=== PATIENT | male | born 1945 | race Caucasian/White ===

== ENCOUNTER → 2017-04-26 12:02 | Outpatient (CLI) | payer MEDICARE | END | disposition home or self-care (01) | LOC: D.RAD 04-25 08:00 | DX: J44.9 Chronic obstructive pulmonary disease, unspecified (principal) ==

== ENCOUNTER → 2017-05-03 08:26 | Outpatient (CLI) | payer MEDICARE | END | disposition home or self-care (01) | LOC: D.CT 08:26 | DX: R93.8 Abnormal findings on diagnostic imaging of other specified body structures (principal) ==

== ENCOUNTER 2017-08-16 17:37 | Emergency (ER) | payer MEDICARE | END 2017-08-16 21:17 | disposition home or self-care (01) | LOC: D.ER 17:37 | DX: S09.90XA Unspecified injury of head, initial encounter (principal); W19.XXXA Unspecified fall, initial encounter; Y93.89 Activity, other specified; Y92.129 Unspecified place in nursing home as the place of occurrence of the external cause; J44.9 Chronic obstructive pulmonary disease, unspecified; F03.90 Unspecified dementia, unspecified severity, without behavioral disturbance, psychotic disturbance, mood disturbance, and anxiety; Z79.01 Long term (current) use of anticoagulants ==

== ENCOUNTER 2017-08-18 17:36 | Inpatient (IN) | payer MEDICARE ==
[~2017-08-18] VITALS: Ht 177.8 cm; Wt 63.5 kg
[2017-08-18 20:20] LABS: BASOPHILS 0.1 % (0-2); EOSINOPHILS 0.9 % (0-7); HEMATOCRIT 29.7 % (42.0-54.0); HEMOGLOBIN 9.6 g/dL (13.5-17.5); IMMATURE GRANULOCYTES 0.5 % (0-5); LYMPHOCYTES 5.1 % (15-50); MCH 27.1 pg (26.0-34.0); MCHC 32.3 g/dL (31.0-37.0); MCV 83.9 fL (80.0-100.0); MEAN PLATELET VOLUME 10.3 fL (7.4-10.4); MONOCYTES 5.7 % (2-11); NEUTROPHILS 87.7 % (40-80); PLATELET COUNT 160 10x3/uL (130-400); RBC 3.54 10x6/uL (4.20-6.10); RDW 15.5 % (11.5-14.5); WBC 10.7 10x3/uL (4.8-10.8)
[2017-08-18 20:28] LABS: APTT 36.4 SECONDS (22.8-39.4); INR 1.24 (0.85-1.17); PROTIME 15.5 SECONDS (11.6-15.0)
[2017-08-18 20:34] LABS: ALBUMIN 2.5 g/dL (3.4-5.0); ANION GAP 12.4 mmol/L (8-16); BILIRUBIN - TOTAL 0.51 mg/dL (0.2-1.3); CALCIUM 9.3 mg/dL (8.5-10.1); CARBON DIOXIDE 29.3 mmol/L (21.0-32.0); CREATININE - SERUM 1.2 mg/dL (0.6-1.3); POTASSIUM - SERUM 3.7 mmol/L (3.5-5.1); PROTEIN - SERUM 7.2 g/dL (6.4-8.2)
[2017-08-19] VITALS (7 sets, daily range): BP systolic 99–132; BP diastolic 65–84; Ht 177.8 cm; Wt 63.5 kg
[2017-08-19] MEDS ORDERED: ACETAMINOPHEN325 MG PO (02:51)
[2017-08-19] MEDS ORDERED: ELIQUIS5 MG PO (02:52)
[2017-08-19] MEDS ORDERED: FUROSEMIDE20 MG PO (02:52)
[2017-08-19] MEDS ORDERED: DEPAKOTE500 MG PO (02:52)
[2017-08-19] MEDS ORDERED: MELATONIN 3 MG1 TAB PO (02:53)
[2017-08-19] MEDS ORDERED: HYDROCODON-ACE1 EAC7 PO (02:53)
[2017-08-19] MEDS ORDERED: VITAMIN B-1100 M1 PO (02:53)
[2017-08-19] MEDS ORDERED: PROTONIX40 MG PO (02:53)
[2017-08-19] MEDS ORDERED: VITAMIN D5000 UNIT PO (02:54)
[2017-08-19] MEDS ORDERED: GEODON20 MG PO (02:54)
[2017-08-19] MEDS ORDERED: IPRAT-ALBUT 0.5-3 ML UPD (02:55)
[2017-08-19] MEDS ORDERED: FOLIC ACID1 MG PO (02:55)
[2017-08-19] MEDS ORDERED: VITAMIN B-121000 MCG PO (02:56)
--- NOTE | 2017-08-19 05:26 | NUR ---
WASHERY BOSS ASSESSMENT COMPLETED. PT ORIENTED TO PERSON ONLY. IV TO R HAND WITH HEPARIN AT 1300U/HR. IV PATENT. UPPER L ARM INCISION CLEAN, DRY AND INTACT. L ARM SWOLLEN. WEAK RADIAL PULSE. BED ALARM ON. WILL CONTINUE TO MONITOR. SR UP X2, CALL LIGHT WITHIN REACH.
--- NOTE | 2017-08-19 07:19 | NUR ---
RECEIVED REPORT. ASSUMED CARE OF PATIENT. CALL LIGHT WITHIN REACH. LEFT ARM SWOLLEN. HEPARIN INFUSING AT 13. AWAITING NEXT PTT DRAW AT 0830. NO DISTRESS.
--- NOTE | 2017-08-19 08:29 | NUR ---
MEDICATED FOR PAIN AT THIS TIME. NO DISTRESS.
--- NOTE | 2017-08-19 08:47 | NUR ---
CALLED LAB TO REMIND THEM THAT PTT WAS DUE TO BE DRAWN AT 0830 AND HAS NOT BEEN DRAWN YET. SPOKE WITH SOPHIE. SHE STATED CLIENT COORDINATOR IS ON HER WAY TO DRAW THE PTT AT THIS TIME.
--- NOTE | 2017-08-19 09:40 | NUR ---
PTT RESULTED 83.9. PER HEPARIN PROTOCOL, NO ADJUSTMENT TO HEPARIN DRIP INDICATED AT THIS TIME. NEXT PTT DRAW SCHEDULED WITH AM LABS.
--- NOTE | 2017-08-19 09:57 | NUR ---
UNSUCCESSFUL ATEMPT TO PLACE 22 GAUGE TO RIGHT FOREARM. PATIENT NEEDS 2ND IV FOR FLUIDS HEPARIN DRIP IS INFUSING TO 20 GUAGE IN RIGHT HAND. WILL HAVE ANOTHER NURSE TRY IV PLACEMENT.
--- NOTE | 2017-08-19 18:25 | NUR ---
ASSISTED PATIENT BACK TO BED FROM RESTROOM. CALL LIGHT PLACED WITHIN REACH. LEFT ARM ON PILLOW. NO DISTRESS.
--- NOTE | 2017-08-19 19:35 | NUR ---
PT IN BED RESTING QUIETLY. BREATHING EVEN AND UNLABORED. DENIES ANY PAIN OR NEEDS AT THIS TIME. BED IN LOW POSITION, CALL LIGHT WITHIN REACH. WILL CTM.
[2017-08-20 04:00] VITALS: BP 106/63
--- NOTE | 2017-08-20 07:10 | NUR ---
RECEIVED REPORT. ASSUMED CARE OF PATIENT. CALL LIGHT WITHIN REACH. PATIENT RESTING WITH EYES CLOSED, RESP EVEN AND UNLABORED. EASILY AROUSED. HEPARIN DRIP INFUSING AT 13, CONTINUE TO AWAIT PTT VALUE. CALLED AND SPOKE TO SOPHIE IN LAB AND SHE STATED LAB HAS TO BE REDRAWN. SENDING PORT TRAFFIC MANAGER AT THIS TIME FOR REDRAW. NO DISTRESS.
[2017-08-20 08:00] VITALS: BP 124/75
--- NOTE | 2017-08-20 08:23 | NUR ---
PTT RESULTED AT THIS TIME. PER PROTOCOL, HEPARIN DRIP STOPED, WILL RESTART AT 0850 AT A DECREASED RATE OF 1100 UNITS PER HOUR.
--- NOTE | 2017-08-20 08:55 | NUR ---
HEPARIN DRIP RESUMED AT THIS TIME AT 1100 UNITS = 11 ML PER HOUR PER PROTOCOL. CALL LIGHT WITHIN REACH. NO DISTRESS.
[2017-08-20 12:00] VITALS: BP 116/65
--- NOTE | 2017-08-20 14:17 | NUR ---
PER LIVAN FROM LAB, HEPARIN DRIP STOPPED AT 1415. DRIP TO BE STOPPED 30 MINUTES PRIOR TO LAB DRAW DUE TO INACCURATE RESULTS. LAB UNABLE TO DRAW DISTAL FROM IV SITE.
[2017-08-20 15:05] LABS: BASOPHILS 0 % (0-2); EOSINOPHILS 1.3 % (0-7); HEMATOCRIT 31.8 % (42.0-54.0); HEMOGLOBIN 10.6 g/dL (13.5-17.5); IMMATURE GRANULOCYTES 0.1 % (0-5); LYMPHOCYTES 12.1 % (15-50); MCH 27.7 pg (26.0-34.0); MCHC 33.3 g/dL (31.0-37.0); MONOCYTES 7.3 % (2-11); NEUTROPHILS 79.2 % (40-80); PLATELET COUNT 121 10x3/uL (130-400); RBC 3.83 10x6/uL (4.20-6.10); RDW 15.5 % (11.5-14.5); WBC 6.7 10x3/uL (4.8-10.8)
[2017-08-20 15:16] LABS: ANION GAP 12.4 mmol/L (8-16); CALCIUM 8.7 mg/dL (8.5-10.1); CARBON DIOXIDE 29.3 mmol/L (21.0-32.0); CREATININE - SERUM 1.3 mg/dL (0.6-1.3); POTASSIUM - SERUM 3.7 mmol/L (3.5-5.1)
--- NOTE | 2017-08-20 15:56 | NUR ---
HEPARIN DRIP STOPPED DUE TO PTT ELEVATED AT 98.5. WILL HOLD FOR 30 MINUTES AND RESTART.
[2017-08-20 16:00] VITALS: BP 111/63
--- NOTE | 2017-08-20 16:31 | NUR ---
HEPARIN DRIP NOW INFUSING AT 10 ML/HR = 1000 UNITS PER HOUR.
--- NOTE | 2017-08-20 17:31 | NUR ---
MEDICATED FOR SHOULDER PAIN AT THIS TIME. NO DISTRESS.
[2017-08-20 20:49] VITALS: BP 93/61
[2017-08-21 01:18] VITALS: BP 85/49
[2017-08-21 05:07] LABS: BASOPHILS 0.2 % (0-2); EOSINOPHILS 1.1 % (0-7); HEMATOCRIT 28.7 % (42.0-54.0); HEMOGLOBIN 9.4 g/dL (13.5-17.5); IMMATURE GRANULOCYTES 0.3 % (0-5); LYMPHOCYTES 13.6 % (15-50); MCH 27.2 pg (26.0-34.0); MCHC 32.8 g/dL (31.0-37.0); MCV 82.9 fL (80.0-100.0); MEAN PLATELET VOLUME 10.1 fL (7.4-10.4); MONOCYTES 10.8 % (2-11); PLATELET COUNT 121 10x3/uL (130-400); RBC 3.46 10x6/uL (4.20-6.10); RDW 15.4 % (11.5-14.5); WBC 6.3 10x3/uL (4.8-10.8)
[2017-08-21 05:15] LABS: ANION GAP 12.3 mmol/L (8-16); CALCIUM 8.6 mg/dL (8.5-10.1); CARBON DIOXIDE 29.5 mmol/L (21.0-32.0); CREATININE - SERUM 1.6 mg/dL (0.6-1.3); POTASSIUM - SERUM 3.8 mmol/L (3.5-5.1)
--- NOTE | 2017-08-21 07:35 | NUR ---
ASSESSMENT DONE. DENIES NEEDS.
[2017-08-21 08:00] VITALS: BP 88/56
--- NOTE | 2017-08-21 10:04 | NUR ---
IV PATENT. CALL LIGHT IN REACH. NO NEEDS VOICED. WILL CONT. PLAN OF CARE.
[2017-08-21 12:00] VITALS: BP 98/56
[2017-08-21 16:00] VITALS: BP 104/60
--- NOTE | 2017-08-21 16:38 | NUR ---
WITHOUT CHANGES OR DISTRESS NOTED AT THIS TIME. DENIES NEEDS.
[2017-08-21 21:02] VITALS: BP 110/69
[2017-08-22 00:30] VITALS: BP 113/64
[2017-08-22 05:28] LABS: BASOPHILS 0.2 % (0-2); EOSINOPHILS 1.6 % (0-7); HEMATOCRIT 29.3 % (42.0-54.0); HEMOGLOBIN 9.8 g/dL (13.5-17.5); IMMATURE GRANULOCYTES 0.3 % (0-5); MCH 27.7 pg (26.0-34.0); MCHC 33.4 g/dL (31.0-37.0); MCV 82.8 fL (80.0-100.0); MEAN PLATELET VOLUME 11.2 fL (7.4-10.4); MONOCYTES 8.2 % (2-11); NEUTROPHILS 76.7 % (40-80); PLATELET COUNT 130 10x3/uL (130-400); RBC 3.54 10x6/uL (4.20-6.10); RDW 15.8 % (11.5-14.5); WBC 6.3 10x3/uL (4.8-10.8)
[2017-08-22 05:41] LABS: ANION GAP 9.7 mmol/L (8-16); CALCIUM 8.8 mg/dL (8.5-10.1); CARBON DIOXIDE 29.7 mmol/L (21.0-32.0); CREATININE - SERUM 1.4 mg/dL (0.6-1.3); POTASSIUM - SERUM 3.4 mmol/L (3.5-5.1)
[2017-08-22 06:03] VITALS: BP 101/62
--- NOTE | 2017-08-22 07:15 | NUR ---
RECEIVED REPORT. ASSUMED CARE OF PATIENT. CALL LIGHT WITHIN REACH. RESTING WITH EYES OPEN. PATIENT CONFUSED. LEFT ARM ELEVATED ON PILLOW AT THIS TIME. DENIES PAIN. NO DISTRESS.
[2017-08-22 08:07] VITALS: BP 121/73
--- NOTE | 2017-08-22 09:15 | NUR ---
ASSISTED PATIENT BACK TO BED. CALL LIGHT WITHIN REACH. NO DISTRESS.
--- NOTE | 2017-08-22 12:19 | NUR ---
LEFT SHOULDER SITE CARE PROVIDED AT THIS TIME. DRESSINGS TO LEFT SHOULDER CLEAN, DRY AND INTACT. ARM WRAPPED WITH PRIYA BANDAGE PER ORDERS AT THIS TIME. NO DISTRESS. TOLERATED DRESSING CHANGE WELL. ZIP LINE DRESSINGS PATENT TO BOTH SHOULDER INCISIONS.
--- NOTE | 2017-08-22 12:21 | NUR ---
Patient Name: ALEX CARMEN Admission Status: ER Accout number: [id number] Admission Date: 08-19-2017 : 1945 Admission Diagnosis: Attending: LONG ISIDRO Current LOS: 3 Anticipated DC Date: 08-22-2017 Planned Disposition: Shelter Facility Primary Insurance: MEDICARE A & B PLANNED EXTERNAL PROVIDER: [facility], MEDICARE REHAB BED Discharge Planning Comments: * Is the patient Alert and Oriented? No 0 * How many steps to enter\\exit or inside your home? NONE 0 * PCP DR. CESPEDES 0 * [facility] * Preadmission Environment Shelter Facility 0 * Facility Name [facility] 0 * Partial ADLs (Assistance needed) Ambulation Bathing Medication Management Transfers 0 * Equipment Other 0 * Other Equipment ALL MEDICAL EQUIPMENT PROVIDED BY FACILITY 0 * List name and contact numbers for known caregivers / representatives who currently or will assist patient after discharge: MARIA VICTORIA /NAVI CARMEN, BROTHER-POA /DTR IN LAW, / [phone] 0 * Community resources currently utilized None 0 * Please name any agencies selected above. NONE 0 * Additional services required to return to the preadmission environment? No 0 * Can the patient safely return to the preadmission environment? Yes 0 * Has this patient been hospitalized within the prior 30 days at any hospital? No 0 CM RECEIVED DISCHARGE ORDER INDICATING DISCHARGE BACK TO SNF; CM MET WITH PT IN ROOM TO DISCUSS DISCHARGE PLANNING AND NEEDS. PT ORIENTED TO SELF ONLY, HE DOES NOT KNOW WHERE HE LIVES AND CAN NOT TELL CM WHO TO CALL IN REGARDS TO HIS CARE. PT DENIES DISCHARGE NEEDS. CM PROVIDED AND DISCUSSED IMPORTANT MESSAGE FROM MEDICARE. CM REVIEWED CHART WHICH INDICATES PT IN GROUP HOME AT [facility]. CM CALLED LISTED EMERGENCY CONTACT OF MARIA VICTORIA OR NAVI CARMEN, , LEFT MESSAGE. CM CALLED SECOND LISTED NUMBER FOR MARIA VICTORIA CARMEN, , INFORMED MARIA VICTORIA OF DISCHARGE WHO WAS IN AGREEMENT FOR DISCHARGE BACK TO [facility] REPORTING THIS IS PT'S "THIRD HOME". CM CALLED [facility], , SPOKE TO LACIE WHO REPORTS THEY CAN ACCEPT PT BACK TODAY IN SKILLED BED AND WILL ARRANGE VAN TRANSPORTATION. CM FAXED DISCHARGE INFORMATION TO [facility] AT [phone]. DALE RECEIVED CALL FROM NAVI CARMEN WHO REPORTS SHE AND MARIA VICTORIA ARE PT'S GUARDIAN / POWER OF PUBLIC SERVICES LIBRARIAN AND IT SHOULD BE IN THE CHART. NAVI REPORTS PT IS NOT ABLE TO MAKE DECISONS FOR HIMSELF AND CANNOT REFUSE SURGERY; LUIS ALBERTO UNDERSTANDING IS THAT PT WAS TO HAVE SURGERY AFTER THE BLOOD CLOT WAS DISOLVED. NAVI ASKED FOR AND RECEIVED DR. ABDALLA OFFICE PHONE NUMBER. NAVI DOES NOT WANT PT DISCHARGED AND WANTS PT TO HAVE SURGERY. DALE REVIEWED CHART AND FOUND NO POWER OR PUBLIC SERVICES LIBRARIAN OR GUARDIANSHIP ON THE CHART. NAVI FURTHER STATES THEY WENT TO COURT YESTERDAY AND WERE GRANTED PERMANATE GUARDIANSHIP. CM EXPLAINED THAT ANY POA OR GUARDIANSHIP WILL NEED TO BE PROVIDED TO BE PLACED ON THE CHART. NAVI REPORTS SHE WILL CALL [employer] AND HAVE THEM FAX ONE IMMEDIATELY. CM NOTIFIED ARTI FINK AND CITY COUNCILMAN OF [employer]OVE. CM CALLED AND SPOKE TO RECEPTIONISTS WHO WILL NOTIFY LACIE TO CANCEL VAN PHLEBOTOMY LAB ASSISTANT FOR TODAY. Substation Wireman: Harvey Solorio
[2017-08-22 13:38] VITALS: BP 110/60
--- NOTE | 2017-08-22 14:00 | NUR ---
PATIENT ATTEMPTING TO GET OOB, LEONARDO MAT ALARMING. ASSISTED PATIENT TO RESTROOM FOR TOILETING AND BACK TO BED. CALL LIGHT PLACED WITHIN REACH. NO DISTRESS.
[2017-08-22 16:52] VITALS: BP 116/72
--- NOTE | 2017-08-22 17:48 | NUR ---
PATIENT HAS CONTINUOUSLY GOTTEN OOB THIS SHIFT, SETTING OFF BED ALARM. REORIENTED, ASSISTED BACK IN BED. PATIENT HAS UNSTEADY GAIT AND FALL RISK HAVE BEEN IDENTIFIED. VERO ONTIVEROS. LEONARDO MCKEON PATENT.
--- NOTE | 2017-08-22 18:11 | NUR ---
PATIENT CONTINUES TO GET OOB. ASSISTED TO RESTROOM AGAIN AND BACK TO BED. LEONARDO MAT PATENT. CALL LIGHT WITHIN REACH. NO DISTRESS.
--- NOTE | 2017-08-22 19:40 | NUR ---
PT IN BED. FINANCIAL ECONOMIST IN ROOM. ASSISTING PT WITH TOILETING. DENIES NEEDS AT THIS TIME.
[2017-08-22 21:53] VITALS: BP 137/86
[2017-08-23 02:37] VITALS: BP 128/76
[2017-08-23 05:05] LABS: BASOPHILS 0 % (0-2); EOSINOPHILS 1.2 % (0-7); HEMATOCRIT 30.4 % (42.0-54.0); HEMOGLOBIN 9.9 g/dL (13.5-17.5); IMMATURE GRANULOCYTES 0.3 % (0-5); LYMPHOCYTES 11.4 % (15-50); MCHC 32.6 g/dL (31.0-37.0); MCV 83.1 fL (80.0-100.0); MONOCYTES 9.6 % (2-11); NEUTROPHILS 77.5 % (40-80); PLATELET COUNT 143 10x3/uL (130-400); RBC 3.66 10x6/uL (4.20-6.10); RDW 15.6 % (11.5-14.5); WBC 7.3 10x3/uL (4.8-10.8)
[2017-08-23 05:16] VITALS: BP 127/70
[2017-08-23 05:20] LABS: ANION GAP 10.9 mmol/L (8-16); CALCIUM 9.1 mg/dL (8.5-10.1); CARBON DIOXIDE 30.1 mmol/L (21.0-32.0); CREATININE - SERUM 1.2 mg/dL (0.6-1.3)
--- NOTE | 2017-08-23 05:31 | NUR ---
PT IS AWAKE, CONFUSED, HAS BEEN OOB SEVERAL TIMES, EVEN WITH LEONARDO MAT ALARM AND BOX ALARM. PT IS UNABLE TO UNDERSTAND THAT HE MUST STAY IN BED R/T HIS SAFETY AND HIGH FALL RISK. PT IS UNABLE TO BE REORIENTED, AND IS UNABLE TO UNDERSTAND HOW AND WHEN TO USE HIS CALL LIGHT. PIO SCHULTZ HAS HAD TO DO ONE ON ONE CARE WITH PT FOR MAJORITY OF SHIFT R/T HIS INABILITY TO UNDERSTAND EVEN SIMPLE INSTRUCTIONS. PT REQUIRES CLOSE AND FREQUENT MONITORING. CONTINUE TO MONITOR.
--- NOTE | 2017-08-23 07:15 | NUR ---
REPORT RECEIVED. PT RESTING QUIETLY, PT IS ALERT AND ORIENTED X1. RR EVEN AND UNLABORED. ASISSTED PT TO AMBULATE TO BATHROOM X1 ASSIST. LEONARDO ALARM ON AND WORKING. WILL CTM.
[2017-08-23 09:29] VITALS: BP 113/70
--- NOTE | 2017-08-23 10:40 | NUR ---
Nutrition Follow Up: Pt is very confused at this time. Per chart pt is eating 47% meal avg on a regular diet. He is receiving Ensure TID. +BM 08/22/17. Labs reviewed. Meds noted including Lasix, Thiamine. Rec continue current diet, supplement regimen. RD following.
[2017-08-23 11:40] VITALS: BP 123/79
--- NOTE | 2017-08-23 15:15 | NUR ---
DISCUSSED D/C WITH FAMILY AT BEDSIDE. VERBALIZED UNDERSTANDING. PT RESTING QUIETLY, WILL CTM.
[2017-08-23 15:31] VITALS: BP 126/75
--- NOTE | 2017-08-23 16:58 | NUR ---
Patient Name: ALEX CARMEN Encounter No: [id number] : 1945 Primary Insurance: MEDICARE A & B Anticipated DC Date: 08-22-2017 Planned Disposition: Longterm Facility External Planned Provider: [facility] MEDICARE REHAB BED DCP follow-up note: CM RECEIVED DISCHARGE ORDER INDICATING DISCHARGE BACK TO LONG TERM; CM CALLED LISTED EMERGENCY CONTACT OF MARIA VICTORIA OR NAVITEODORA CARMEN, , SPOKE TO MARIA VICTORIA AND INFORMED OF DISCHARGE; MARIA VICTORIA IN AGREEMENT FOR DISCHARGE BACK TO [facility] TODAY. CM CALLED [facility], , SPOKE TO LACIE WHO REPORTS HE WILL CALL CM REGARDING VAN TRANSPORTATION. CM FAXED DISCHARGE INFORMATION TO [facility] AT [phone]. CM RECEIVED CALL FROM LACIE KINNEY [facility], NO VAN AVAILABLE FOR ALLIANCE DIRECTOR UNTI THE MORNING, PT DOES NOT QUALIFY FOR [facility] TRANSPORT. HEAVY EQUIPMENT OPERATOR NOTIFIED. BEDSIDE NURSE NOTIFIED. CM CALLED MARIA VICTORIA CARMEN, NOTIFIED OF DELAY IN GETTING PT BACK TO THE LONG TERM, MARIA VICTORIA REPORTS UNDERSTANDING AND AGREEMENT. NURSE REPORT TO BE CALLED TO [facility], . VAN TO ALLIANCE DIRECTOR PT IN THE MORNING, 08-24-17. Farmworker Field Crop: Harvey Solorio
--- NOTE | 2017-08-23 18:28 | NUR ---
PT RESTING QUIETILY, ASSISTED PT TO USE THE URINAL. PT DENIES OTHER NEEDS, RR EVEN AND UNLABORED. WILL GIVE REPORT ON PT CONDTION FOR THE DAY.
[2017-08-23 21:32] VITALS: BP 136/65
--- NOTE | 2017-08-23 22:51 | NUR ---
PATIENT RESTLESS. USING URINAL, RESPONS TO VERBAL DIRECTIONS AND IS ABLE TO TAKE HIS MEDICATIONS. DENIES ANY PAIN OR ANY NEEDS AT THIS TIME.DRESSING ON LEFT SHOULDER IS CLEAN DRY AND INTACT.
--- NOTE | 2017-08-24 00:01 | NUR ---
HIGH SCHOOL LIBRARIAN AT BEDSIDE, CALL LIGHT IN REACH. WILL CONTINUE WITH PLAN OF CARE. 82 SR ON TELEMETRY
[2017-08-24 02:45] VITALS: BP 121/62
[2017-08-24 04:42] VITALS: BP 130/56
--- NOTE | 2017-08-24 04:52 | NUR ---
PATIENT IS SLEEPING SOUNDLY.
[2017-08-24 06:29] LABS: BASOPHILS 0.1 % (0-2); EOSINOPHILS 0.7 % (0-7); HEMATOCRIT 30.8 % (42.0-54.0); HEMOGLOBIN 10.1 g/dL (13.5-17.5); IMMATURE GRANULOCYTES 0.3 % (0-5); LYMPHOCYTES 10.7 % (15-50); MCHC 32.8 g/dL (31.0-37.0); MCV 82.4 fL (80.0-100.0); MEAN PLATELET VOLUME 10.9 fL (7.4-10.4); MONOCYTES 9.4 % (2-11); NEUTROPHILS 78.8 % (40-80); PLATELET COUNT 139 10x3/uL (130-400); RBC 3.74 10x6/uL (4.20-6.10); WBC 6.9 10x3/uL (4.8-10.8)
[2017-08-24 07:01] LABS: ANION GAP 13.9 mmol/L (8-16); CALCIUM 8.9 mg/dL (8.5-10.1); CARBON DIOXIDE 28.5 mmol/L (21.0-32.0); CREATININE - SERUM 1.2 mg/dL (0.6-1.3); POTASSIUM - SERUM 4.4 mmol/L (3.5-5.1)
--- NOTE | 2017-08-24 07:15 | NUR ---
RECIEVED REPORT ON PATIENT, PATIENT IS SLEEPING AT THIS TIME. PATIENT IS ON ROOM AIR, NAD NOTED. CHEST RISES AND FALLS EQUALLY. PATIENT IS SR ON MONITOR WITH A RATE OF 83 AT THIS TIME. BED IS LOW AND LOCKED AT THIS TIME. CALL LIGHT IN REACH. CPOC
--- NOTE | 2017-08-24 09:21 | NUR ---
REPORT GIVEN TO ZAID AT [employer].
[2017-08-24 09:45] VITALS: BP 131/77
--- NOTE | 2017-08-24 10:30 | NUR ---
SAL RINCON HERE FOR PICKUP, IV DC WITH CATH TIP INTACT. PATIENT CONFUSED AND UNABLE TO SIGN DC INSTRUCTIONS. PAPERWORK GIVEN TO CAROLYN RINCON. CPOC
== END 2017-08-24 13:53 | DRG 560 ==
LOC: D.ER 17:36 → D.M2 08-19 01:30
PROVIDERS: Family Medicine; ADMIT Family Medicine
DX: M97.32XA Periprosthetic fracture around internal prosthetic left shoulder joint, initial encounter (principal); N17.9 Acute kidney failure, unspecified; I82.C12 Acute embolism and thrombosis of left internal jugular vein; W19.XXXA Unspecified fall, initial encounter; Z79.01 Long term (current) use of anticoagulants; D64.9 Anemia, unspecified; G30.9 Alzheimer's disease, unspecified; F02.80 Dementia in other diseases classified elsewhere, unspecified severity, without behavioral disturbance, psychotic disturbance, mood disturbance, and anxiety; K21.9 Gastro-esophageal reflux disease without esophagitis; N40.0 Benign prostatic hyperplasia without lower urinary tract symptoms; M79.89 Other specified soft tissue disorders; Z86.711 Personal history of pulmonary embolism